=== PATIENT | female | born 1980 | race American Indian/Alaskan Native ===

== ENCOUNTER 2017-12-05 21:03 | Emergency (ER) | payer MEDICAID, OTHER ==
[2017-12-05 21:13] VITALS: BP 134/87; PULSE 72; RESP 16; TEMP 97.8; O2SAT 99
--- NOTE | 2017-12-05 21:19 | ED PDOC ---
HPI: Abdomen Time Seen by Provider: 12/05/17 21:19 Chief Complaint (Nursing): Abdominal Pain Chief Complaint (Provider): abd pain, flank pain, vaginal bleeding History Per: Patient Additional Complaint(s): 36-year-old female with history of back pain, sciatica and fibroids presents to emergency department with right-sided flank pain that started yesterday. Patient denies any associated urinary symptoms, nausea or vomiting. Patient also states that she has had prolonged vaginal bleeding for 24 days. Patient has history of irregular menses and known fibroids. She states she passed a large clot earlier today. Patient does not believe she is but is not entirely sure. No fever or chills. Patient also states she feels fatigued and dizzy from time to time since prolonged vaginal bleeding started. Past Medical History Reviewed: Historical Data, Nursing Documentation, Vital Signs Vital Signs: Last Vital Signs Temp 97.8 F 12/05/17 21:07 Pulse 72 12/05/17 21:07 Resp 16 12/05/17 21:07 BP 134/87 12/05/17 21:07 Pulse Ox 99 12/05/17 22:05 - Medical History PMH: Anxiety - Surgical History Other surgeries: ovarian cyst removal - Family History Family History: States: No Known Family Hx - Living Arrangements Living Arrangements: With Family - Social History Current smoker - smoking cessation education provided: No Alcohol: None Drugs: Denies - Home Medications Home Medications: Ambulatory Orders Medication Instructions Recorded Cyclobenzaprine [Cyclobenzaprine 10 mg PO DAILY 06/22/17 HCl] Magnesium 1 tab PO DAILY 06/22/17 Cyclobenzaprine [Cyclobenzaprine 10 mg PO TID PRN #15 tab 12/06/17 HCl] Naproxen [Naprosyn] 500 mg PO BID #20 tab 12/06/17 - Allergies Allergies/Adverse Reactions: Allergies Allergy/AdvReac Type Severity Reaction Status Date / Time ibuprofen [From Motrin] Allergy RASH Verified 06/22/17 18:23 Review of Systems ROS Statement: Except As Marked, All Systems Reviewed And Found Negative Constitutional: Negative for: Fever, Chills Cardiovascular: Negative for: Chest Pain, Palpitations Respiratory: Negative for: Cough, Hemoptysis Gastrointestinal: Negative for: Vomiting Genitourinary Female: Positive for: Vaginal Bleeding. Negative for: Dysuria, Frequency, Incontinence, Hematuria, Vaginal Discharge Musculoskeletal: Positive for: Back Pain (right flank pain) Neurological: Negative for: Headache, Dizziness Physical Exam - Reviewed Nursing Documentation Reviewed: Yes Vital Signs Reviewed: Yes - Physical Exam Appears: Positive for: Well, Non-toxic, No Acute Distress Head Exam: Positive for: ATRAUMATIC, NORMAL INSPECTION Skin: Negative for: Rash Eye Exam: Positive for: Normal appearance Neck: Positive for: Normal Cardiovascular/Chest: Positive for: Regular Rate, Rhythm Respiratory: Positive for: Normal Breath Sounds Gastrointestinal/Abdominal: Positive for: Soft. Negative for: Tenderness, Distended, Guarding, Rebound Back: Negative for: L CVA Tenderness, R CVA Tenderness, Vertebral Tenderness Extremity: Positive for: Normal ROM Neurologic/Psych: Positive for: Alert, Oriented - Laboratory Results Result Diagrams: 12/05/17 22:50 12/05/17 22:50 - ECG O2 Sat by Pulse Oximetry: 99 Pulse Ox Interpretation: Normal - Other Rad CT abd and pelvis without contrast X-Ray: Read By Radiologist X-Ray Interpretation: no acute finding Medical Decision Making Medical Decision Makin-year-old female with vaginal bleeding and back pain Plan: Urine test Urine dip CBC CMP PT/PTT IVF PO tylenol CT: No acute finding Patient reports improvement pain after meds were given. Patient aware of all diagnostic testing results, all questions answered. Prescriptions given for Naprosyn and Flexeril. Patient was advised to follow-up with her primary doctor and with her furniture arranger. Disposition - Clinical Impression Clinical Impression: Back pain, Fibroid - Patient ED Disposition Is Patient to be Admitted: No Counseled Patient/Family Regarding: Studies Performed, Diagnosis, Need For Followup, Rx Given - Disposition Referrals: Adán Vega MD [Staff Provider] - Disposition: Routine/Home Disposition Time: 00:37 Condition: STABLE Additional Instructions: Take prescription medications as directed as needed for pain. Follow-up with primary doctor and furniture arranger as soon as possible. Prescriptions: Cyclobenzaprine [Cyclobenzaprine HCl] 10 mg PO TID PRN #15 tab PRN Reason: Muscle Pain Naproxen [Naprosyn] 500 mg PO BID #20 tab Instructions: Uterine Fibroids (DC), Low Back Pain (DC) Forms: [employer] ([place]), [facility] ED School/Work Excuse Results - Lab Results Lab Results: 02/12/05/17 12/05/17 22:50 22:50 22:50 WBC 6.2 RBC 4.34 Hgb 12.3 Hct 37.3 MCV 85.9 D MCH 28.4 MCHC 33.1 RDW 14.6 H Plt Count 190 MPV 8.2 Neut % (Auto) 70.5 Lymph % (Auto) 20.7 [place] % (Auto) 7.8 Eos % (Auto) 0.7 Baso % (Auto) 0.3 Neut # (Auto) 4.4 Lymph # (Auto) 1.3 [place] # (Auto) 0.5 Eos # (Auto) 0.0 Baso # (Auto) 0.0 PT 11.0 INR 1.0 APTT 30.4 Sodium 141 Potassium 4.1 Chloride 101 Carbon Dioxide 29 Anion Gap 15 BUN 14 Creatinine 0.7 Est GFR ( Amer) > 60 Est GFR (Non-Af Amer) > 60 Random Glucose 103 Calcium 9.3 Total Bilirubin 0.8 AST 38 H D ALT 25 Alkaline Phosphatase 40 Total Protein 7.1 Albumin 4.0 Globulin 3.1 Albumin/Globulin Ratio 1.3 Urine Color Urine Clarity Urine pH Ur Specific [place] Urine Protein Urine Glucose (UA) Urine Ketones Urine Blood Urine Nitrate Urine Bilirubin Urine Urobilinogen Ur Leukocyte Esterase Urine RBC (Auto) Urine Microscopic WBC Ur Squamous Epith Cells 12/05/17 22:42 WBC RBC Hgb Hct MCV MCH MCHC RDW Plt Count MPV Neut % (Auto) Lymph % (Auto) [place] % (Auto) Eos % (Auto) Baso % (Auto) Neut # (Auto) Lymph # (Auto) [place] # (Auto) Eos # (Auto) Baso # (Auto) PT INR APTT Sodium Potassium Chloride Carbon Dioxide Anion Gap BUN Creatinine Est GFR ( Amer) Est GFR (Non-Af Amer) Random Glucose Calcium Total Bilirubin AST ALT Alkaline Phosphatase Total Protein Albumin Globulin Albumin/Globulin Ratio Urine Color Straw Urine Clarity Clear Urine pH 6.0 Ur Specific [place] 1.008 Urine Protein Negative Urine Glucose (UA) Neg Urine Ketones Negative Urine Blood Moderate Urine Nitrate Negative Urine Bilirubin Negative Urine Urobilinogen 0.2-1.0 Ur Leukocyte Esterase Neg Urine RBC (Auto) 1 Urine Microscopic WBC < 1 Ur Squamous Epith Cells 1
[2017-12-05] MEDS ORDERED: Sodium Chloride 0.9% 1,000 ML IV STA (21:40)
[2017-12-05 22:52] LABS: SQUAMOUS EPITHIAL 1 /hpf (0-5); URINE BILIRUBIN NEGATIVE (NEGATIVE); URINE BLOOD MODERATE (NEGATIVE); URINE CLARITY CLEAR (Clear); URINE COLOR STRAW (YELLOW); URINE GLUCOSE (UA) NEG (Normal); URINE LEUKOCYTE ESTERASE NEG Leu/uL (Negative); URINE NITRATE NEGATIVE (NEGATIVE); URINE PROTEIN NEGATIVE (NEGATIVE); URINE UROBILINOGEN 0.2-1.0 mg/dL (0.2-1.0)
[2017-12-05 22:59] LABS: BASO % 0.3 % (0.0-2.0); EOS % 0.7 % (0.0-4.0); HEMOGLOBIN 12.3 g/dL (12.0-16.0); LYMPH # 1.3 K/uL (1.0-4.3); LYMPH % 20.7 % (20.0-40.0); MEAN CELL VOLUME 85.9 fl (81.0-99.0); MEAN CORPUSCULAR HEMOGLOBIN 28.4 pg (27.0-31.0); MEAN CORPUSCULAR HGB CONC 33.1 g/dL (33.0-37.0); MEAN PLATELET VOLUME 8.2 fl (7.2-11.7); MONO # 0.5 K/uL (0.0-0.8); MONO % 7.8 % (0.0-10.0); NEUT # 4.4 K/uL (1.8-7.0); NEUT % 70.5 % (50.0-75.0); NRBC % 0.1 % (0.0-0.0); RBC 4.34 Mil/uL (3.80-5.20); RED CELL DISTRIBUTION WIDTH 14.6 % (11.5-14.5); WHITE BLOOD COUNT 6.2 K/uL (4.8-10.8)
[2017-12-05 23:10] LABS: ALB/GLOB RATIO 1.3 (1.0-2.1); ALT/SGPT 25 U/L (9-52); AST/SGOT 38 U/L (14-36); BLOOD UREA NITROGEN 14 mg/dl (7-17); CALCIUM 9.3 mg/dL (8.4-10.2); GFR AFRICAN-AMERICAN > 60; GFR NON-AFRICAN AMERICAN > 60; PARTIAL THROMBOPLASTIN TIME 30.4 Seconds (25.6-37.1)
--- NOTE | 2017-12-06 00:20 | CT ---
EXAM: CT Abdomen and Pelvis Without Intravenous Contrast CLINICAL HISTORY: 36 years old, female; Pain; Abdominal pain; Flank; Right; Prior surgery; Surgery date: 6+ months; Surgery type: Rt ovary removed; Additional info: Right flank pain, hematuria TECHNIQUE: Axial computed tomography images of the abdomen and pelvis without intravenous contrast. All CT scans at this facility use one or more dose reduction techniques, viz.: automated exposure control; ma/kV adjustment per patient size (including targeted exams where dose is matched to indication; i.e. head); or iterative reconstruction technique. Coronal and sagittal reformatted images were created and reviewed. COMPARISON: No relevant prior studies available. FINDINGS: Lower thorax: No acute findings. ABDOMEN: Liver: Unremarkable. Gallbladder and bile ducts: The gallbladder is contracted but otherwise normal. No calcified stones. No ductal dilation. Pancreas: Unremarkable. No ductal dilation. Spleen: Unremarkable. No splenomegaly. Adrenals: Unremarkable. No mass. Kidneys and ureters: Unremarkable. No obstructing stones. No hydronephrosis. Stomach and bowel: Unremarkable. No obstruction. No mucosal thickening. Appendix: A normal appendix is identified. PELVIS: Bladder: Unremarkable. No stones. Reproductive: The left ovary appears prominent. ABDOMEN and PELVIS: Intraperitoneal space: Unremarkable. No free air. No significant fluid collection. Bones/joints: No acute fracture. No dislocation. Soft tissues: Unremarkable. Vasculature: Unremarkable. No abdominal aortic aneurysm. Lymph nodes: Unremarkable. No enlarged lymph nodes. IMPRESSION: No acute intra-abdominal or pelvic abnormality. Normal appendix. No nephrolithiasis or obstructive uropathy. The left ovary is prominent. Followup pelvic ultrasound could be obtained if clinically warranted.
== END 2017-12-06 00:50 | disposition home or self-care (01) ==
LOC: H.ER 21:03
DX: D25.9 Leiomyoma of uterus, unspecified (principal); F41.9 Anxiety disorder, unspecified; Z88.6 Allergy status to analgesic agent
CPT/HCPCS: 74176; 80053; 81003; 81025; 85025; 85610; 85730; 87086; 99283; J7040